=== PATIENT | male | born 1940 | race Caucasian/White ===

== ENCOUNTER 2022-02-17 12:01 | Emergency (ER) | payer MEDICARE ==
[2022-02-17] MEDS ORDERED: Metoprolol Tartrate 25 MG Tab PO ONE (12:51)
[2022-02-17] MEDS ORDERED: Adenosine 6 MG/2 ML SDV IVPUSH ONE ×2 (13:02→13:03)
[2022-02-17] MEDS ORDERED: Sodium Chloride 0.9% 1,000 ML IV ONE (13:12)
[2022-02-17 13:14] LABS: CARBON DIOXIDE,CO2 26.9 mmol/L (21.0-32.0); POTASSIUM,K 4.6 mmol/L (3.5-5.1)
[2022-02-17] MEDS ORDERED: Magnesium Oxide 400 MG Tab PO ONE (13:20)
== END 2022-02-17 18:15 | disposition home or self-care (01) ==
LOC: MW.ED 12:01
DX: I47.1 Supraventricular tachycardia (principal); C61 Malignant neoplasm of prostate; E83.42 Hypomagnesemia
CPT/HCPCS: 36415; 80053; 83735; 84484; 85025; 93005; 96361; 96374; 96376; 99285; A9270; J0153; J7030